=== PATIENT | male | born 1995 | race Caucasian/White ===

== ENCOUNTER 2018-06-19 19:16 | Emergency (ER) | payer SELFPAY ==
[~2018-06-19] VITALS: Ht 190.5 cm; Wt 65.8 kg
[2018-06-19 19:16] VITALS: BP 140/70
[2018-06-19] MEDS ORDERED: KETOROLAC 30 MG/ML VIAL. IM ONE (19:45)
--- NOTE | 2018-06-19 19:54 | PHYS DOC ---
Past History Past Medical History: No Pertinent History Past Surgical History: No Surgical History Smoking: Cigarettes Alcohol Use: Occasionally Drug Use: None Adult General Chief Complaint Chief Complaint: UPPER EXTREMITY INJURY HPI HPI Patient is a 23 year old male who presents with a right thumb injury. Patient states that he was opening his vehicle door when he pushed too hard and hyperextended his right thumb. Patient is now complaining of constant right thumb pain that is throbbing in nature. Patient currently rates his pain to be 9 /10. Patient denies taking any medication prior to arrival. Movement makes the pain worse. Denies any alleviating factors or radiation of the pain. Patient denies sustaining any other injuries. Review of Systems Review of Systems Constitutional: Denies fever or chills Eyes: Denies change in visual acuity or eye pain HENT: Denies nasal congestion or sore throat Respiratory: Denies cough or shortness of breath Cardiovascular: Denies chest pain or palpitations GI: Denies abdominal pain, nausea, vomiting, or diarrhea : Denies dysuria or hematuria Musculoskeletal: Denies back pain or joint pain other than right thumb Integument: Denies rash or skin lesions Neurologic: Denies focal weakness or sensory changes Complete systems were reviewed and found to be within normal limits, except as documented in this note. Physical Exam Physical Exam Constitutional: Well developed, well nourished, no acute distress. HENT: Normocephalic, atraumatic, oropharynx moist, nose normal. Eyes: Conjunctiva normal, no discharge. Neck: Normal range of motion, supple, no stridor. Cardiovascular: Heart rate regular rhythm, CR < 2 sec, right radial pulse +2 Lungs & Thorax: No respiratory distress Abdomen: Soft, no tenderness. Skin: Warm, dry, no rash. Back: No tenderness, no CVA tenderness. Extremities: Tenderness of right first MCP joint on palpation and range of motion. Tenderness to ulnar collateral ligament of right thumb. No obvious ecchymosis, edema, or erythema. Neurologic: Alert and oriented X 3, normal motor function, normal sensory function, no focal deficits noted. Psychologic: Affect normal. Speech normal. EKG EKG [] Radiology/Procedures Radiology/Procedures Right first finger xray (preliminary interpretation by ED physician) reveals no fracture or dislocation Course & Med Decision Making Course & Med Decision Making Patient is a 23 year old male who presents to the ED for evaluation of a right thumb injury. Patient treated with Ketorolac in the ED for pain. X-ray did not reveal any fracture or dislocation. Right thumb placed in a thumb spica splint. Patient was instructed to take Naproxen for pain and inflammation and to ice 20 minutes on and 20 minutes off. Patient is stable for discharge home. Patient was instructed to follow up with his PCP/Orthopedics. Orthopedic referral provided.. Patient verbalized understanding and agreed with plan. Dragon Disclaimer Dragon Disclaimer This electronic medical record was generated, in whole or in part, using a voice recognition dictation system. Splinting Splinting : Location: Right thumb Pre-Made Type: metal Splint: thumb spica Pre-Proc Neuro Vasc Exam: normal Post-Proc Neuro Vasc Exam: normal, unchanged from pre-exam Departure Departure: Impression: Primary Impression: Ilda's thumb of right hand Disposition: 01 HOME, SELF-CARE Condition: STABLE Referrals: PCP,AAMIR (PCP) BETY BRODY MD Patient Instructions: Gamekeeper's, Skier's Thumb, RICE - Routine Care for Injuries, [id number], Splint Care, [id number] Scripts Naproxen (NAPROXEN) 500 Mg Tablet.dr 1 TAB PO Q12HR PRN for PAIN, #20 TAB Prov: MEMO GIVENS DO 06/19/18 Problem Qualifiers Primary Impression: Ilda's thumb of right hand Encounter type: initial encounter Qualified Codes: S53.31XA - Traumatic rupture of right ulnar collateral ligament, initial encounter MEMO GIVENS DO Jun 19, 2018 19:54
[2018-06-19] MEDS ORDERED: NAPR500T8 PO (20:03)
[2018-06-19] MEDS ORDERED: KETOROLAC 30 MG/ML VIAL. ONE (20:10)
--- NOTE | 2018-06-20 07:55 | RAD ---
Right fingers radiograph 06/19/2018 7:41 PM INDICATION: Right first digit injury COMPARISON: None available. TECHNIQUE: 4 views of the right first digit are provided. FINDINGS: There is no acute fracture or dislocation. Bone mineralization is within normal limits. Joint spaces are maintained. Regional soft tissues are within normal limits. There is no soft tissue gas or osseous erosion. IMPRESSION: No acute fracture or dislocation. Electronically signed by: Annabella Segovia MD (06/20/2018 7:52 AM) [id number]
== END 2018-06-19 20:18 | disposition home or self-care (01) ==
LOC: ER 19:16
DX: S63.418A Traumatic rupture of collateral ligament of other finger at metacarpophalangeal and interphalangeal joint, initial encounter (principal); F17.210 Nicotine dependence, cigarettes, uncomplicated; X50.9XXA Other and unspecified overexertion or strenuous movements or postures, initial encounter; Y93.89 Activity, other specified; Y92.89 Other specified places as the place of occurrence of the external cause; Y99.8 Other external cause status
CPT/HCPCS: 29125; 73140; 96372; 99283; J1885

== ENCOUNTER 2019-08-25 01:07 | Emergency (ER) | payer SELFPAY ==
[~2019-08-25] VITALS: Ht 190.5 cm; Wt 65.0 kg
[~2019-08-25 01:07] MED LIST: NAPR500T8 PO
--- NOTE | 2019-08-25 01:24 | PHYS DOC ---
Past History Past Medical History: No Pertinent History Past Surgical History: No Surgical History Smoking: Cigarettes Alcohol Use: Occasionally Drug Use: None General Adult EDM: Chief Complaint: poison marisa HPI: HPI: Patient is a 24 year old male who presents for evaluation of a significant itching rash to both forearms particularly worse on the right side. 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 Symptoms been progressing for the past several days. Patient is not taking any medication for this condition but has been putting alcohol on the rash. Patient denies any respiratory complaints or wheezing. Patient is otherwise healthy at baseline. The rash was on the exposed forearm areas where he has been working outside Review of Systems: Review of Systems: Constitutional: Denies fever or chills Eyes: Denies change in visual acuity HENT: Denies nasal congestion or sore throat Respiratory: Denies cough or shortness of breath Cardiovascular: Denies chest pain or edema GI: Denies abdominal pain, nausea, vomiting, bloody stools or diarrhea : Denies dysuria Musculoskeletal: Denies back pain or joint pain Integument: Itching rash both forearms Neurologic: Denies headache, focal weakness or sensory changes Endocrine: Denies polyuria or polydipsia Lymphatic: Denies swollen glands Psychiatric: Denies depression or anxiety Heart Score: Risk Factors: Risk Factors: DM, Current or recent (<one month) smoker, HTN, HLP, family history of CAD, obesity. Risk Scores: Score 0 - 3: 2.5% MACE over next 6 weeks - Discharge Home Score 4 - 6: 20.3% MACE over next 6 weeks - Admit for Clinical Observation Score 7 - 10: 72.7% MACE over next 6 weeks - Early Invasive Strategies Physical Exam: PE: Constitutional: Well developed, well nourished, mild acute distress, non-toxic appearance. [] HENT: Normocephalic, atraumatic, bilateral external ears normal, oropharynx moist, no oral exudates, nose normal. [] Eyes: PERRL, EOMI, conjunctiva normal, no discharge. [] Neck: Normal range of motion, no tenderness, supple, no stridor. [] Cardiovascular:Heart rate regular rhythm, no murmur [] Lungs & Thorax: Bilateral breath sounds clear to auscultation [] Abdomen: Bowel sounds normal, soft, no tenderness, no masses, no pulsatile masses. [] Skin: Warm, dry, no erythema, significant pruritic rash both sides right side more than left. [] Back: No tenderness, no CVA tenderness. [] Extremities: No tenderness, no cyanosis, no clubbing, ROM intact, no edema. [] Neurologic: Alert and oriented X 3, normal motor function, normal sensory function, no focal deficits noted. [] Psychologic: Affect normal, judgement normal, mood normal. [] EKG: EKG: [] Radiology/Procedures: Radiology/Procedures: [] Course & Med Decision Making: Course & Med Decision Making Pertinent Labs and Imaging studies reviewed. (See chart for details) [] Dragon Disclaimer: Dragon Disclaimer: This electronic medical record was generated, in whole or in part, using a voice recognition dictation system. 0130 patient given injection of Solu-Medrol 105 mg IM. Prescription for Medrol Dosepak as well as Atarax given. Work note for 2 days off given Departure Departure: Impression: Primary Impression: Contact dermatitis due to poison marisa Disposition: HOME/RESIDENCE PRIOR TO ADM Condition: STABLE Referrals: PCP,NO (PCP) DOMINIC REZA MD Patient Instructions: Poison Marisa Additional Instructions: Keep area clean and dry, use calamine lotion as directed. For itching you may also use Benadryl cream. Take steroids as directed. If the Benadryl by mouth is not strong enough you can switch to the prescription Atarax. Do not take both of those medications at the same time Scripts Hydroxyzine Hcl (HYDROXYZINE HCL) 25 Mg Tablet 1 TAB PO TID for itching, #30 TAB Prov: BEAR CASTELLANO DO 08/25/19 Methylprednisolone (MEDROL) 4 Mg Tab.ds.pk 1 PKG PO UD for allergic rash, #1 PKG Prov: BEAR CASTELLANO DO 08/25/19 Justification of Admission: Justification of Admission: Justification of Admission Dx: N/A BEAR CASTELLANO DO Aug 25, 2019 01:24
[2019-08-25] MEDS ORDERED: methylPREDNISolone SOD SUCC PF 125 MG/2 ML VIAL. ONE (01:29)
[2019-08-25] MEDS ORDERED: methylPREDNISolone SOD SUCC PF 125 MG/2 ML VIAL. IM ONE (01:30)
[2019-08-25] MEDS ORDERED: HYDR25TA PO (01:34)
[2019-08-25] MEDS ORDERED: METH4TAB2 PO (01:34)
[2019-08-25 01:37] VITALS: BP 116/71
== END 2019-08-25 01:49 | disposition home or self-care (01) ==
LOC: ER 01:07
DX: L25.5 Unspecified contact dermatitis due to plants, except food (principal); F17.210 Nicotine dependence, cigarettes, uncomplicated
CPT/HCPCS: 96372; 99283; J2930